=== PATIENT | female | born 1965 | race American Indian/Alaskan Native ===

== ENCOUNTER 2020-02-24 05:13 | Emergency (ER) | payer OTHER ==
[2020-02-24] MEDS ORDERED: ASPIRIN 325 MG TAB PO ONE (06:17)
[2020-02-24 06:57] LABS: Basophils % (Auto) 0.8 % (0.0-1.8); Eosinophils % (Auto) 1.2 % (0.0-4.3); Hematocrit 34.6 % (30.3-42.9); Hemoglobin 11.4 gm/dl (10.1-14.3); Lymphocytes # (Auto) 1.2 K/mm3 (1.2-5.4); Lymphocytes % (Auto) 33.7 % (13.4-35.0); Mean Corpuscular HGB Conc 33 % (30-34); Mean Corpuscular Volume 96 fl (79-97); Monocytes # (Auto) 0.4 K/mm3 (0.0-0.8); Monocytes % (Auto) 11.1 % (0.0-7.3); Platelet Count 190 K/mm3 (140-440); Red Cell Distribution Width 13.4 % (13.2-15.2)
[2020-02-24 07:18] LABS: BUN/Creatinine Ratio 16; Blood Urea Nitrogen 14 mg/dL (7-17); Calcium 8.7 mg/dL (8.4-10.2); Hemolysis Index 8
--- NOTE | 2020-02-24 07:19 | XRay Report ---
CHEST 1 VIEW 02/24/2020 6:10 AM INDICATION / CLINICAL INFORMATION: Chest Pain. COMPARISON: None available. FINDINGS: SUPPORT DEVICES: None. HEART / MEDIASTINUM: No significant abnormality. LUNGS / PLEURA: Mild bibasilar linear scarring versus atelectasis. No significant consolidation. No p neumothorax. ADDITIONAL FINDINGS: No significant additional findings. IMPRESSION: 1. No acute findings. Signer Name: J Luis Case MD Signed: 02/24/2020 7:14 AM Workstation Name: [email or web address]
[2020-02-24 11:46] VITALS: BP 129/76
--- NOTE | 2020-02-24 11:52 | Emergency Department Report ---
ED Palpitations HPI - General Chief Complaint: Chest Pain Stated Complaint: CHEST PAIN Time Seen by Provider: 02/24/20 11:17 Source: patient Mode of arrival: Stretcher Limitations: No Limitations - History of Present Illness Initial Comments: 54-year-old female the past medical history of hypertension (controlled with diet and exercise) presents to the hospital complaining of 2 episodes of palpitations that occurred around 4 AM. Patient woke up to go to the bathroom. While in the bathroom she felt like her heart was racing. She felt very nervous with episode. The last less than 1 minute without associated symptoms (nausea, vomiting, diaphoresis, shortness of breath, or chest pain). Symptoms then reoccurred shortly after leaving the bathroom less than less than 1 minute with associated associated with some mild left-sided chest pressure and without other associated symptoms. Patient becomes tearful when questioned by her stress level at home and endorses having a lot of stress lately. She complained of mild cough this morning without fever, loss of sense of taste or smell, calf tenderness, leg edema, history of PE/DVT, family history CAD, smoking, drug use, or alcohol use. - Related Data Allergies Allergy/AdvReac Type Severity Reaction Status Date / Time amoxicillin Allergy Hives Verified 02/24/20 06:15 ED Review of Systems ROS: Stated complaint: CHEST PAIN Other details as noted in HPI Comment: All other systems reviewed and negative ED Past Medical Hx - Past Medical History Previous Medical History?: Yes Hx Hypertension: Yes - Surgical History Past Surgical History?: No - Social History Smoking Status: Never Smoker Substance Use Type: None ED Physical Exam - General Limitations: No Limitations - Other Other exam information: General: No acute distress Head: Atraumatic Eyes: normal appearance ENT: Moist mucous membranes Neck: Normal appearance, no midline tenderness Chest: Clear to auscultation bilaterally, chest wall nontender CV: Regular rate and rhythm Abdomen: Soft, normal bowel sounds, nontender, nondistended, no rebound or guarding Back: Normal inspection Extremity: Normal inspection, full range of motion, no calf tenderness or leg edema Neuro: Alert O x 3, no facial asymmetry, speech clear, no gross motor sensory deficit Psych: Appropriate behavior Skin: No rash ED Course Vital Signs 02/24/20 02/24/20 05:53 11:44 Temperature 98.3 F 98.0 F Pulse Rate 72 58 L Respiratory 16 14 Rate Blood Pressure 146/85 129/76 O2 Sat by Pulse 97 98 Oximetry ED Medical Decision Making - Lab Data Result diagrams: 02/24/20 06:47 02/24/20 06:47 Lab Results 02/24/20 02/24/20 02/24/20 Range/Units 06:47 06:47 09:08 WBC 3.5 L (4.5-11.0) K/mm3 RBC 3.60 L (3.65-5.03) M/mm3 Hgb 11.4 (10.1-14.3) gm/dl Hct 34.6 (30.3-42.9) % MCV 96 (79-97) fl MCH 32 (28-32) pg MCHC 33 (30-34) % RDW 13.4 (13.2-15.2) % Plt Count 190 (140-440) K/mm3 Lymph % (Auto) 33.7 (13.4-35.0) % Spink % (Auto) 11.1 H (0.0-7.3) % Eos % (Auto) 1.2 (0.0-4.3) % Baso % (Auto) 0.8 (0.0-1.8) % Lymph # (Auto) 1.2 (1.2-5.4) K/mm3 Spink # (Auto) 0.4 (0.0-0.8) K/mm3 Eos # (Auto) 0.0 (0.0-0.4) K/mm3 Baso # (Auto) 0.0 (0.0-0.1) K/mm3 Seg Neutrophils % 53.2 (40.0-70.0) % Seg Neutrophils # 1.9 (1.8-7.7) K/mm3 Sodium 141 (137-145) mmol/L Potassium 4.4 (3.6-5.0) mmol/L Chloride 106.3 (98-107) mmol/L Carbon Dioxide 28 (22-30) mmol/L Anion Gap 11 mmol/L BUN 14 (7-17) mg/dL Creatinine 0.9 (0.6-1.2) mg/dL Estimated GFR > 60 ml/min BUN/Creatinine Ratio 16 % Glucose 103 H (65-100) mg/dL Calcium 8.7 (8.4-10.2) mg/dL Troponin T < 0.010 < 0.010 (0.00-0.029) ng/mL - EKG Data -: EKG Interpreted by Me EKG shows normal: sinus rhythm, ST-T waves (No STEMI) Rate: normal - Radiology Data Radiology results: report reviewed (Chest x-ray: Mild bibasilar atelectasis versus scarring no acute findings, no consolidation) - Medical Decision Making Patient presents to the hospital with intermittent palpitations since 4 AM x2 without recurrence. She did have episode of mild left pressure chest pressure without recurrent. No other associated symptoms reported. Patient has a low heart score (2), low Wells criteria for PE (0). Patient instructed how to count her pulse and how to identify irregular rhythm. She will be given outpatient PMD and cardiology referral. Chest pain referral form faxed to [facility] Repeat vital signs prior to discharge showed normal blood pressure and a heart rate of 58 Critical Care Time: No Critical care attestation.: If time is entered above; I have spent that time in minutes in the direct care of this critically ill patient, excluding procedure time. ED Disposition Clinical Impression: Palpitations, Atypical chest pain, Elevated blood pressure reading Disposition: TO HOME OR SELFCARE Is pt being admited?: No Condition: Stable Instructions: Nonspecific Chest Pain, Adult, Palpitations, Chest Pain (ED), Hypertension (ED), Preventing Hypertension Additional Instructions: Follow-up with your doctor or doctor/clinic provided. Return if symptoms worsen as indicated by your discharge instructions. Continue to monitor your pulse as discussed and also monitor your blood pressure. Keep a log of your readings and report the results to your follow-up physicians. Referrals: NEW TRACEY MD [Staff Physician] - 3-5 Days (Primary care doctor) JENNIFER MTZ MD [Staff Physician] - 3-5 Days (Primary care doctor) BELLA RILEY MD [Staff Physician] - 3-5 Days (Promotional Advertising Assistant) [facility] [Provider Group] - 3-5 Days (Primary care clinic) Time of Disposition: 11:56 HEART Score - HEART Score History: Slightly suspicious EKG: Normal Age: 45-65 Risk factors: 1-2 risk factors Troponin: Troponin T < 0.010 ng/mL (0.00-0.029) 11/14/20 09:08 Troponin: < normal limit HEART Score: 2
== END 2020-02-24 12:24 | disposition home or self-care (01) ==
LOC: ED 05:13
DX: R07.89 Other chest pain (principal); R00.2 Palpitations; I10 Essential (primary) hypertension
CPT/HCPCS: 36415; 71045; 80048; 84484; 85025; 93005